=== PATIENT | female | born 1960 ===

== ENCOUNTER 2020-10-21 11:28 | Emergency (ER) | payer OTHER ==
[~2020-10-21] VITALS: Ht 149.9 cm; Wt 67.1 kg
[2020-10-21] MEDS ORDERED: HYDRODIURIL12.5 MG PO (11:37)
[2020-10-21] MEDS ORDERED: CRESTOR10 MG PO (11:37)
[2020-10-21] MEDS ORDERED: ZETIA10 MG PO (11:38)
[2020-10-21] MEDS ORDERED: NORVASC5 MG PO (11:38)
== END 2020-10-21 13:07 | disposition home or self-care (01) ==
LOC: ER 11:28
DX: G56.01 Carpal tunnel syndrome, right upper limb (principal)